=== PATIENT | female | born 1940 | race Caucasian/White ===

== ENCOUNTER → 2017-02-12 11:33 | Outpatient (CLI) | payer MEDICARE, OTHER ==
--- NOTE | 2017-02-19 08:17 | EC ---
PATIENT:YASMIN MONTAÑO DATE OF SERVICE: 02/12/17 SEX: F MEDICAL RECORD: [id number] DATE OF : 42 LOCATION:[facility] AGE OF PATIENT: 76 ADMISSION DATE: 02/12/17 REFERRING PHYSICIAN: INTERPRETING PHYSICIAN: JACKIE JIMENEZ M.D. ECHOCARDIOGRAM REPORT ECHO CHARGES 4 ECHO COMPLETE CLINICAL DIAGNOSIS: HYPERTENSION/CAROTID DISEASE ECHOCARDIOGRAPHIC MEASUREMENTS (adult normal given) AC root (d.<3.7cm) 2.8 LV Septum d (<1.2 cm> 1.3 Valve Excursion 1.8 LV Septum (systole) 1.5 Left Atria (s.<4.0cm> 3.9 LVPW d(<1.2cm) 1.1 RV (d.<2.3cm) 4.1 LVPW (sytole) 1.5 LV diastole(<5.6CM) 4.4 MV E-F(>70mm/sec) LV systole 3.6 LVOT Diameter 1.5 MV exc.(>10mm) 1.6 Est.ejection fraction (50-75%) Pericardial Effusion N DOPPLER: LVIT A 29.0 E 94.0 LA RVSP 44 LVOT 137 AOP1/2T Asc. Ao 170 RVOT 93 RA PA 123 AV Gradient Peak 11.53 AV Mean 5.8 AV Area 1.6 MV Gradient Peak 4.30 MV Mean 1.40 MV Area COMMENTS: Competitive Intelligence Manager: Shea COLEMAN Marketing Support Specialist:Shea Jimenez TAPE# PACS DATE OF SERVICE: 02/12/2017 REFERRING PHYSICIAN: Dr. Yung Cantrell. INDICATION: Hypertension, carotid artery disease. DESCRIPTION: Left ventricle demonstrates left ventricular hypertrophy. No wall motion abnormalities noted. Estimated ejection fraction is 55%. Mitral valve appears structurally normal. There is mild regurgitation seen. Left atrium is normal in size. The aortic valve is trileaflet. There is no stenosis or ECHOCARDIOGRAM REPORT [id number] YASMIN MONTAÑO regurgitation seen. Right ventricle is mildly dilated. Tricuspid valve is structurally normal. There is mild regurgitation noted. Right ventricular systolic pressure is elevated at 44 mmHg. There is no pericardial effusion noted. IMPRESSION: 1. Left ventricular hypertrophy with preserved ejection fraction of 55%. 2. Mild mitral regurgitation. 3. Mild tricuspid regurgitation. TRANSINT:[id number] Voice Confirmation ID: [id number] DOCUMENT ID: [id number] JACKIE JIMENEZ M.D. at 0817 CC: [id number] DICTATION DATE: 02/13/17 0804 TOOL REPAIRER BENCH: 02/14/17 0150 DEP CLI 02/12/17 [place] [id number] [place] [id number]
== END | disposition home or self-care (01) ==
LOC: D.ECHO 02-11 13:00 → D.US 02-11 14:00 → D.ECHO 11:33
DX: I65.23 Occlusion and stenosis of bilateral carotid arteries (principal); I10 Essential (primary) hypertension

== ENCOUNTER → 2018-04-02 12:52 | Outpatient (CLI) | payer MEDICARE, OTHER ==
--- NOTE | ~2018-04-02 | EC ---
PATIENT:YASMIN MONTAÑO DATE OF SERVICE: 04/02/18 SEX: F MEDICAL RECORD: [id number] DATE OF : 42 LOCATION:D[facility] AGE OF PATIENT: 77 ADMISSION DATE: 04/02/18 REFERRING PHYSICIAN: INTERPRETING PHYSICIAN: JESSE MCCLENDON MD ECHOCARDIOGRAM REPORT ECHO CHARGES 4 ECHO COMPLETE Date: 04/02 CLINICAL DIAGNOSIS: HTN ECHOCARDIOGRAPHIC MEASUREMENTS (adult normal given) AC root (d.<3.7cm) 2.9 cm LV Septum d (<1.2 cm> 1.4 cm Valve Excursion 1.9 cm LV Septum (systole) 1.9 cm Left Atria (s.<4.0cm> 3.9 cm LVPW d(<1.2cm) 1.2 cm RV (d.<2.3cm) 2.2 cm LVPW (sytole) 1.7 cm LV diastole(<5.6CM) 4.6 cm MV E-F(>70mm/sec) cm LV systole 2.6 cm LVOT Diameter 1.6 cm MV exc.(>10mm) cm Est.ejection fraction (50-75%) % DOPPLER: LVIT cm/sec A 60.0 cm/sec E 79.0 cm/sec LA cm/sec RVSP 67.1 mmHg LVOT 86.0 cm/sec AOP1/2T m/s Asc. Ao 166 cm/sec RVOT 78.0 cm/sec RA cm/sec PA 100 cm/sec AV Gradient Peak 11.0 mmHg AV Mean 5.7 mmHg AV Area 0.9 cm MV Gradient Peak 4.4 mmHg MV Mean 1.3 mmHg MV Area cm COMMENTS: Telegraph Inspector: 1 TORSTEN KOLBOE Winding Lathe Operator: 1 Dr. Mcclendon TAPE# PACS Pericardial Effusion N DATE OF SERVICE: 04/02/2018 Echocardiogram FINDINGS: 1. Left ventricular chamber size is within normal limits. Left ventricular systolic function is normal. Overall ejection fraction estimated at 55%. 2. Left atrium, right atrium, and right ventricular chamber sizes are within normal limits. 3. Valvular structures: Aortic valve demonstrates calcific aortic stenosis, ECHOCARDIOGRAM REPORT [id number] YASMIN MONTAÑO valve area calculates to 0.9 cm-squared. There is a gradient of 11 mm across the valve. The remaining valvular structures have normal structure and motion. 4. Doppler interrogation elsewise reveals moderate mitral regurgitation, moderate to severe tricuspid regurgitation, no other valvular insufficiency or stenosis. Pulmonary systolic pressure is estimated at 67 mmHg. 5. No evidence of pericardial effusion or left ventricular thrombus. TRANSINT:[id number] Voice Confirmation ID: [id number] DOCUMENT ID: [id number] JESSE MCCLENDON MD at 1006 CC: [id number] DICTATION DATE: 04/02/18 1603 LEAD APPLICATIONS DEVELOPER: 04/02/18 1621 DEP CLI 04/02/18 [place] [id number] [place] [address]
== END | disposition home or self-care (01) ==
LOC: D.ECHO 03-31 13:00
DX: I65.23 Occlusion and stenosis of bilateral carotid arteries (principal); I10 Essential (primary) hypertension

== ENCOUNTER 2018-06-24 11:06 | Day surgery (SDC) | payer MEDICARE, OTHER ==
[~2018-06-24] VITALS: Ht 162.6 cm; Wt 63.6 kg
--- NOTE | ~2018-06-24 | OP ---
PATIENT NAME: YASMIN MONTAÑO MEDICAL RECORD: [id number] :42 LOCATION:[facility] ADMISSION DATE: SURGEON: MITZI CANTRELL MD DATE OF OPERATION: 06/24/2018 SURGEON: Mitzi Cantrell MD ANESTHESIA: General. ANESTHESIOLOGIST: Gordo Ansari MD OPERATION PERFORMED: Insertion of dual-chamber pacing system. PREOPERATIVE DIAGNOSES: Sick sinus syndrome, bradycardia. POSTOPERATIVE DIAGNOSES: Sick sinus syndrome, bradycardia. INDICATION FOR OPERATION: Symptomatic bradycardia. FINDINGS OF THE OPERATION: The pacemaker Medtronic Advisa A2DR01, serial number [id number]. ATRIAL LEAD: Medtronic model number 4574-45, serial number [id number]. Ventricular lead Medtronic model number 4074-52, serial number [id number]. LEAD ANALYSIS: Atrial lead threshold 0.4 volts, current lead threshold 0.4 milliamps, resistance 545 ohms. P-wave 2.8. Ventricular lead threshold 0.3 volts, current lead threshold 0.4 milliamps, resistance 890 ohms, R-wave 18.5, slew rate 3.7. ESTIMATED BLOOD LOSS: Less than 5 cc. DESCRIPTION OF PROCEDURE: After informed consent, adequate preoperative medication evaluation, the patient was brought to the operating room, placed on the table in the supine position. After induction of general endotracheal anesthesia and application of appropriate monitoring devices, the left chest and neck prepped and draped in sterile field, utilizing Betadine scrub, alcohol, and Betadine solution. Betadine-impregnated drape was also used, 1% lidocaine was infiltrated in the left subclavicular space. Incision made. Dissection carried down the fascia. Hemostasis maintained with electrocautery. A pacemaker pocket was formed. Subclavian vein was cannulated with the introducers, leads placed in the heart. The above electrophysiologic study was done. The leads were felt to be in good position. The leads were then secured and connected to pulse generator. The pacemaker was placed in the pocket. Pacemaker fired, captured and sensed appropriately. Pocket was irrigated. Instrument count and sponge count were correct times 2. Pocket was closed in layers utilizing 3-0 Vicryl on deep subcutaneous tissue, 5-0 subcuticular Monocryl on the skin. Sterile dressings were applied. The patient tolerated procedure well and was transferred to postanesthesia recovery in satisfactory condition. TRANSINT:[id number] Voice Confirmation ID: [id number] DOCUMENT ID: [id number] OPERATIVE REPORT [id number] YASMIN MONTAÑO EDWARD MD at 1256 CC: [id number] DICTATION DATE: 06/24/18 1435 EDGER MACHINE OPERATOR: 06/24/18 1452 [facility] 06/25/18 [place] [id number] [place] [id number]
--- NOTE | ~2018-06-24 | HP ---
PATIENT: YASMIN MONTAÑO MEDICAL RECORD: [id number] ACCOUNT: [id number] LOCATION:D.OPS : 42 ADMISSION DATE: 06/24/18 HISTORY AND PHYSICAL EXAMINATION NameYASMIN MONTAÑO (77yo, F) ID# [id number]. Date/Time06/23/2018 10:02KHJNB56/23/1942Service Dept.[facility]PP_[facility] ClinicProviderMITZI BUNCH MDInsuranceMed Primary: [place] Insurance # : [id number] Referring Provider Name : RAFITA LEWIS Employer Name : RETIRED Med Secondary: [employer] [place] [facility] Insurance # : [id number] Policy/Group # : [id number] Referring Provider Name : RAFITA LEWIS Employer Name : RETIRED Prescription: [employer] - This member could not be found in the payer's files. Please verify coverage and all member demographic information. Chief Complaint Bradycardia, Sick sinus syndrome EVAL FOR PPM PLACEMENT Patient's Care Team Referring Provider (): RAFITA LEWIS: [facility], [address] [place] [phone], , Other: RAFITA LEWIS MD: [address] [place] [phone], , Patient's Pharmacies [place] [phone] ([facility]) : [address] [place] [phone], , Vitals BP:122/56 sitting R arm 06/23/2018 10:19 amBP Cuff Size:adult 06/23/2018 10:19 amHR:42,REG 06/23/2018 10:19 amHt:5 ft 3 in 06/23/2018 10:11 amWt:140 lbs 06/23/2018 10:19 amNotes:HEART RATE RUNNING 40'S, FEELING TIRED AND NO ENERGY 06/23/2018 10:20 amBMI:24.8 06/23/2018 10:19 amAllergies Reviewed Allergies IODINATED CONTRAST- ORAL AND IV DYEMedications Reviewed Medications aspirin 81 mg chewable tablet Chew 1 tablet(s) every day by oral route.10/02/11 enteredShea Yecitalopram 20 mg tablet Take 1 tablet(s) every day by oral route.10/02/11 enteredShea EphraimDeplin 15mg every other day02/04/14 enteredLuannwilber BrunoDiovan HCT 160 mg-25 mg tablet Take 1 tablet(s) every day by oral route.10/02/11 enteredShea WilsonEvista 60 mg tablet Take 1 tablet(s) every day by oral route.10/02/11 enteredAt[facility]anie Yemetoprolol tartrate 25 mg tablet Take 0.5 tablet(s) twice a day by oral route.05/22/18 Adalberto Bunch MDNorvasc 5mg daily10/05/11 enteredValentina BrownPriLOSEC 20 mg capsule,delayed release Take 1 capsule(s) every day by oral route.10/02/11 enteredShea EphraimVita-C 500mg daily10/02/11 enteredAt[facility]villejoanie YeProblems Reviewed Problems Bradycardia - Onset: 06/23/2018 Mitral valve disorder HISTORY AND PHYSICAL [id number] YASMIN MONTAÑO Carotid artery occlusion Hyperlipidemia Essential hypertension Aortic valve disorder Family History Reviewed Family History Father- Heart disease ( age: 38) - previously recorded as Heart ProblemMother- Problem ( age: 90) - CEA (previously recorded as Other)Social History Reviewed Social History Cardiology Family history of heart disease?: Y Smoking Status: Current every day smoker Smoker (1 PPD) (Notes: 45+ yrs) High blood pressure: Y Exercise level: Moderate Diet: Regular Surgical History Reviewed Surgical History Other - 1980 - gallbladder Other - 1970 - ovarian cyst removed PERSONAL INJURY LEGAL ASSISTANT History (not configured) Past Medical History Reviewed Past Medical History Carotid Stenosis: Y High Blood Pressure: Y Documents for Discussion N/A Screening None recorded. HPI Fatigue Reported by patient. Quality: continuous Severity: normal sleep patterns Duration: symptoms lasting over 2 weeks Timing: better Context: symptoms improve on weekends/vacation; no problems/stress at work or home Modifying Factors: no new stressors in life Associated Symptoms: no drug/alcohol withdrawal; no depression; no anxiety; no sleep disturbances; no snoring; p eriods of not breathing (apnea) have not been observed; no recent change in weight; HAS SOB AND FATIGUE WHICH IS MUCH WORSE IN THE AFTERNOONS. bbradycardia symptomatic ROS Patient reports exercise intolerance but reports no fever, no night sweats, no significant weight gain, and no significant weight loss. She reports shortness of breath when walking but reports no chest pain, no arm pain on exertion, no shortness of breath when lying down, no palpitations, and no known heart murmur. She reports no dry eyes , no irritation, and no vision change. She reports no difficulty hearing and no ear pain. She reports no frequent nosebleeds and no nose/sinus problems. She reports no sore throat, no bleeding gums, no snoring, no dry mouth, no HISTORY AND PHYSICAL [id number] GILBERTYASMIN mouth ulcers, no oral abnor m alities, and no teeth problems. She reports no cough, no wheezing, no shortness of breath, and no coughing up blood. She reports no abdominal pain, no vomiting, normal appetite, no diarrhea, not vomiting blood, no nausea, and no constipation. She reports n o incontinence, no difficulty urinating, no hematuria, and no increased frequency. She reports no muscle aches, no muscle weakness, no arthralgias/joint pain, no back pain, and no swelling in the extremities. She reports no abnormal mole, no jaundice, and no rashes. She reports no loss of consciousness, no weakness, no numbness, no seizures, no dizziness, and no headaches. She reports no depression, no sleep disturbances, feeling safe in relationship, and no alcohol abuse. She reports no fatigue. She repor ts no swollen glands and no bruising. She reports no runny nose, no sinus pressure, no itching, no hives, and no frequent sneezing. ROS as noted in the HPI Physical Exam Patient is a 77-year-old female. Constitutional: General Appearance well nourished and developed and healthy-appearing. Level of Distress NAD. Ambulation ambulating normally. Ears, Nose, Throat: Ears grossly normal hearing. Nose no external nose lesion. Lips, Teeth, and Gums no mouth or lip ulcers. Orop harynx: moist mucous membranes. Cardiovascular: Apical Impulse not displaced or no thrill; bradycardia. Heart Auscultation normal s1 and s2, no rubs or gallops, and RRR and murmur (TR MR AORTIC FLOW M). Arterial Pulses no abdominal aorta bruits, femoral b ruits, or popliteal bruits and 2+ bilateral, carotid 2+ bilateral, femoral 2+ bilateral, popliteal 2+ bilateral, and dorsalis pedis 2+ bilateral. Edema no edema or varicosities. Lungs: Repiratory Effort no dyspnea. Percussion no hyperresonance or dullness or flatness. Auscultation no wheezing, rhonchi, or rales / crackles and breathing sounds normal, good air movement, and CTA except as noted. Abdomen: Bowl Sounds normal. Inspection and Palpation no tenderness, guarding, vanna s, or rebound tenderness and soft and non-distended. Liver non-tender and no hepatomegaly. Spleen non-tender and no splenomegaly. Hernia none palpable. Musculoskeletal System: Gait And Stance normal gait and stance. Digits and Nails normal nails and no cyanosis. Neurologic: Cranial Nerves grossly intact. Reflexes DTRs 2+ bilaterally throughout. Sensation grossly intact. Lymph Nodes: Lymph Nodes no cervical LAD, supraclavicular LAD, axillary LAD, or inguinal LAD. Eyes: Lids and Conjunctivae no discharge or pallor and non-injected. Pupils PERRLA. Cornea grossly intact. EOM EOMI. Lens clear. Sclera non-icteric. Neck: Neck no masses or enlarged lymph nodes and supple, trachea midline, and carotid bruits (BILAT). Thyroid no enlargement or nodules and non-tender. Skin: Inspection and Palpation no rash, lesions, ulcers, jaundice, or abnormal nevi. Assessment / Plan sick sinus syndrome with symptomatic bradycardia HISTORY AND PHYSICAL [id number] YASMIN MONTAÑO 1. Bradycardia R00.1: Bradycardia, unspecified BRADYCARDIA: CARE INSTRUCTIONS 2. Aortic valve disorder I35.9: Nonrheumatic aortic valve disorder, unspecified HEART VALVE DISEASE: CARE INSTRUCTIONS Discussion Notes symptomatic sick sinus syndrome and bradycardia. I have discussed her disease process with her in detail as well as the alternative methods of treatment we discussed permanent pacemaker including the expected benefits and risks which include bleeding, pneumothorax, infection, stroke, and the imponderables.she understands all the above and wishes to proceed with surge ry as planned MITZI BUNCH MD at 1256 CC: [id number] DICTATION DATE: 06/23/18 1000 HOSIERY LOOPER: DM 06/23/18 1547 DEP SDC 06/25/18 [facility] [address] [place] [address]
[2018-06-24 11:39] LABS: HEMATOCRIT 39.3 % (36.0-48.0); HEMOGLOBIN 13.1 g/dL (12-16); MCH 29.8 pg (26.0-34.0); MCHC 33.3 g/dL (31.0-37.0); MCV 89.5 fL (80.0-100.0); RBC 4.39 10x6/uL (4.00-5.40); RDW 13.7 % (11.5-14.5); WBC 10.9 10x3/uL (4.8-10.8)
[2018-06-24 12:02] LABS: CALC OSMOLALITY 285 mosm/kg (275-300); CALCIUM 8.5 mg/dL (8.5-10.1); CARBON DIOXIDE 28.2 mmol/L (21.0-32.0); CHLORIDE - SERUM 106 mmol/L (98-107); CREATININE - SERUM 0.7 mg/dL (0.6-1.3); GLUCOSE 95 mg/dL (74-106); POTASSIUM - SERUM 3.8 mmol/L (3.5-5.1); SODIUM 143 mmol/L (136-145); UREA NITROGEN 15 mg/dL (7-18); eGFR NON AFRICAN AMERICAN 86 mL/min (90-120)
[2018-06-24 12:08] LABS: APTT 25.9 SECONDS (22.8-39.4); INR 1.15 (0.85-1.17); PROTIME 14.1 SECONDS (11.6-15.0)
[2018-06-24] MEDS ORDERED: CELEXA40 MG PO (12:13)
[2018-06-24] MEDS ORDERED: OXYBUTYNIN CHLOR5 MG PO (12:14)
[2018-06-24] MEDS ORDERED: EVISTA60 MG PO (12:14)
[2018-06-24] MEDS ORDERED: DIOVAN HCT 160/1 TA1 PO (12:15)
[2018-06-24] MEDS ORDERED: MOBIC7.5 MG PO (12:15)
[2018-06-24] MEDS ORDERED: NORVASC10 MG PO (12:15)
[2018-06-24] MEDS ORDERED: LATUDA40 MG PO (12:16)
[2018-06-24] MEDS ORDERED: METOPROLOL TART25 MG PO (12:17)
[2018-06-24] MEDS ORDERED: VITAMIN D31000 UNIT PO (12:18)
[2018-06-24] MEDS ORDERED: ASCORBIC ACID500 MG PO (12:18)
[2018-06-24] MEDS ORDERED: BAYER CHEWABLE81 MG PO (12:19)
[2018-06-24] MEDS ORDERED: PRILOSEC2.5 MG PO (12:19)
[2018-06-24 12:35] VITALS: BP 185/21; BMI 24.0
[2018-06-24 15:15] VITALS: BP 172/48
[2018-06-24 16:00] VITALS: BP 172/60
[2018-06-24 18:09] VITALS: BP 172/49; Ht 162.6 cm; Wt 63.6 kg
[2018-06-24 20:10] VITALS: BP 172/46
[2018-06-25 01:10] VITALS: BP 108/48
[2018-06-25 05:20] VITALS: BP 165/48
[2018-06-25 08:15] VITALS: BP 167/43
== END 2018-06-25 12:31 | disposition home or self-care (01) ==
LOC: D.OPS 11:06 → D.M2 15:58 → D.OPS 06-25 12:31
PROVIDERS: Internal Medicine Cardiovascular Disease
DX: I49.5 Sick sinus syndrome (principal); I35.9 Nonrheumatic aortic valve disorder, unspecified; E78.5 Hyperlipidemia, unspecified; I10 Essential (primary) hypertension; I65.29 Occlusion and stenosis of unspecified carotid artery; F17.210 Nicotine dependence, cigarettes, uncomplicated; Z01.812 Encounter for preprocedural laboratory examination

== ENCOUNTER → 2019-04-06 07:27 | Outpatient (CLI) | payer MEDICARE, OTHER ==
[2018-06-24 18:09] VITALS: BMI 24.0
[~2019-04-06 07:27] MED LIST: ASCORBIC ACID500 MG PO; BAYER CHEWABLE81 MG PO; CELEXA40 MG PO; DIOVAN HCT 160/1 TA1 PO; EVISTA60 MG PO; LATUDA40 MG PO; METOPROLOL TART25 MG PO; MOBIC7.5 MG PO; NORVASC10 MG PO; OXYBUTYNIN CHLOR5 MG PO; PRILOSEC2.5 MG PO; VITAMIN D31000 UNIT PO
== END | disposition home or self-care (01) ==
LOC: D.US 07:27
PROVIDERS: ATTEND Internal Medicine Cardiovascular Disease
DX: I65.23 Occlusion and stenosis of bilateral carotid arteries (principal)

== ENCOUNTER → 2019-07-07 11:35 | Outpatient (CLI) | payer MEDICARE, OTHER ==
[2018-06-24 18:09] VITALS: BMI 24.0
== END | disposition home or self-care (01) ==
LOC: D.HCCARDIO 11:30
PROVIDERS: ATTEND Internal Medicine Cardiovascular Disease
DX: I35.0 Nonrheumatic aortic (valve) stenosis (principal)

== ENCOUNTER → 2019-07-22 10:06 | Outpatient (CLI) | payer MEDICARE, OTHER ==
[2018-06-24 18:09] VITALS: BMI 24.0
== END | disposition home or self-care (01) ==
LOC: D.HCCARDIO 10:06
PROVIDERS: ATTEND Internal Medicine Cardiovascular Disease
DX: I20.9 Angina pectoris, unspecified (principal)

== ENCOUNTER 2019-08-20 05:35 | Day surgery (SDC) | payer MEDICARE, OTHER ==
[2019-08-19 10:12] LABS: HEMATOCRIT 42.1 % (36.0-48.0); HEMOGLOBIN 14.3 g/dL (12-16); LYMPHOCYTES 22.4 % (15-50); MCH 30.9 pg (26.0-34.0); MCV 90.9 fL (80.0-100.0); MEAN PLATELET VOLUME 9.4 fL (7.4-10.4); NEUTROPHILS 68.7 % (40-80); PLATELET COUNT 194 10x3/uL (130-400); RBC 4.63 10x6/uL (4.00-5.40); RDW 13.3 % (11.5-14.5); WBC 11.3 10x3/uL (4.8-10.8)
[2019-08-19 10:16] LABS: APTT 28.6 SECONDS (22.8-39.4); INR 1.02 (0.85-1.17); PROTIME 12.9 SECONDS (11.6-15.0)
[~2019-08-20] VITALS: Ht 160 cm; Wt 63.0 kg
[2019-08-20 06:19] VITALS: BP 148/49; Ht 160 cm; Wt 63.0 kg
--- NOTE | 2019-08-20 10:20 | NUR ---
0840-REC'D FROM RR. AWAKE AND ALERT WITHOUT COMPLAINTS. VSS. AT BEDSIDE, CL IN EASY REACH
--- NOTE | 2019-08-20 10:21 | NUR ---
0900-FULL LIQUID TRAY TO ROOM.DENIES COMPLAINTS
--- NOTE | 2019-08-20 10:21 | NUR ---
0930-DISCHARGE CRITERIA MET.REVIEWED POST OPERATIVE DISCHARGE INSTRUCTIONS WITH PT AND SPOUSE. VERBALIZED UNDERSTANDING. ESCORTED OUT VIA W/C WITH SPOUSE DRIVING HOME
--- NOTE | 2019-08-20 11:38 | OP ---
PATIENT NAME: YASMIN MONTAÑO MEDICAL RECORD: [id number] :42 LOCATION:D.OPS ADMISSION DATE: SURGEON: GORDO CORRALES MD DATE OF OPERATION: 08/20/2019 SURGEON: Gordo Corrales MD ANESTHESIA: TIVA by Sheng Martin CRNA. DIAGNOSIS: Urge urinary incontinence. PROCEDURES: Cystoscopy and intravesical Botox injection 100 units. FINDINGS: Single ureteral orifices bilaterally, no bladder tumors. BLOOD LOSS: None. CLINICAL HISTORY: This is a 78-year-old female, who has significant urge urinary incontinence. She has tried oxybutynin and Myrbetriq. Myrbetriq did work, but she finds the medication to be unaffordable. Therefore, we are going to go with intravesical Botox. SHE IS ALLERGIC TO IVP DYE. She was given Ancef pipe connector to the OR. DESCRIPTION OF PROCEDURE: The patient was given IV sedation. She was placed into lithotomy position and prepped and draped. A 21-Syriac cystoscope with 30-degree lens was used for visualization. There were no bladder tumors seen. At 10 different locations, we injected 1 mL of Botox solution. Each milliliter of Botox solution had 10 units of Botox in it. We spared the ureteral orifices and the trigone. This gave a total of 100 units given into the bladder muscle. The bladder was then emptied through the cystoscope sheath and the scope was removed. I will see the patient in followup in 2-3 weeks' time. TRANSINT:[id number] Voice Confirmation ID: [id number] DOCUMENT ID: [id number] GORDO CORRALES MD at 1138 CC: [id number] DICTATION DATE: 08/20/19818 FUEL CELL BATTERY TECHNICIAN: 08/20/19 1026 [facility] 08/20/19 [place] [id number]
== END 2019-08-20 09:30 | disposition home or self-care (01) ==
LOC: D.OPS 05:35 → D.PAN 07:30 → D.OPS 09:30
PROVIDERS: Anesthesiology; ATTEND Urology
DX: N39.41 Urge incontinence (principal)

== ENCOUNTER → 2019-10-19 17:54 | Outpatient (CLI) | payer MEDICARE, OTHER ==
[2019-08-20 06:19] VITALS: BMI 24.6
== END | disposition home or self-care (01) ==
LOC: D.LABREF 17:54
PROVIDERS: ATTEND Urology
DX: R82.90 Unspecified abnormal findings in urine (principal)

== ENCOUNTER 2019-12-03 06:30 | Day surgery (SDC) | payer MEDICARE, BC ==
[~2019-12-03] VITALS: Ht 160 cm; Wt 63.5 kg
[2019-12-03 07:27] LABS: HEMATOCRIT 40.2 % (36.0-48.0); HEMOGLOBIN 13.3 g/dL (12-16); MCH 30.4 pg (26.0-34.0); MCHC 33.1 g/dL (31.0-37.0); MCV 91.8 fL (80.0-100.0); MEAN PLATELET VOLUME 9.6 fL (7.4-10.4); RBC 4.38 10x6/uL (4.00-5.40); RDW 13.5 % (11.5-14.5); WBC 11.7 10x3/uL (4.8-10.8)
[2019-12-03 07:39] LABS: APTT 28.1 SECONDS (22.8-39.4); INR 1.06 (0.85-1.17); PROTIME 13.3 SECONDS (11.6-15.0)
[2019-12-03 07:50] VITALS: BP 158/65; Ht 160 cm; Wt 63.5 kg
--- NOTE | 2019-12-03 12:40 | NUR ---
1029-REC'D FROM RR.AWAKE AND ALERT WITHOUT COMPLAINTS.VSS. REVIEWED DISCHARGE CRITERIA. CL IN EASY REACH. SPOUSE AT BEDSIDE.
--- NOTE | 2019-12-03 12:42 | NUR ---
1109-TOLERATED TRAY. REMOVED IV FROM LEFT WRIST WITH CATH INTACT,DISPOSED INTO SHARPS,COVERED SITE WITH GUAZE,SECURED WITH MEDIPORE TAPE. REVIEWED POST OPERATIVE INSTRUCTIONS AND FOLLOW UP WITH PT.VERBALIZED UNDERSTANDING.
--- NOTE | 2019-12-03 12:42 | NUR ---
1045-FULL LIQUID TRAY TO ROOM. DENIES COMPLAINTS. VERY PLEASANT LADY
--- NOTE | 2019-12-03 12:44 | NUR ---
1113-ESCORTED OUT VIA W/C WITH SPOUSE AWAITING TO DRIVE HOME
--- NOTE | 2019-12-03 12:59 | OP ---
PATIENT NAME: YASMIN MONTAÑO MEDICAL RECORD: [id number] :42 LOCATION:D.OPS ADMISSION DATE: SURGEON: GORDO CORRALES MD DATE OF OPERATION: 12/03/2019 SURGEON: Gordo Corrales MD ANESTHESIA: TIVA by Roxanne Easley CRNA. DIAGNOSIS: Urge urinary incontinence. PROCEDURES: Cystoscopy and intravesical Botox injection 100 units. FINDINGS: Trabeculated bladder with single ureteral orifices, with no bladder tumors. BLOOD LOSS: None. CLINICAL HISTORY: This is a 78-year-old female who has urge urinary incontinence. She has tried oxybutynin and Myrbetriq. The Myrbetriq did work, but she could not afford it. She then had intravesical Botox injection of 100 units on 08/20/2019. This worked fine, but now it has worn off. She comes to have another Botox injection. SHE IS ALLERGIC TO IODINE CONTRAST. She was given Ancef friction saw operator to the OR. DESCRIPTION OF PROCEDURE: The patient was given IV sedation. She was placed into dorsal lithotomy position and prepped and draped. A 20-Czech cystoscope with 30-degree lens was used for visualization. Findings are as outlined above. At 10 different locations 1 mL of Botox solution was injected. We did not inject the region of the trigone or the ureteral orifices. Each mL of Botox solution had 10 units of Botox suspended within it. Once all the injections were done, the procedure was terminated and the patient's bladder was emptied through the cystoscope sheath. I will see her in followup in 2 weeks' time and see how she is doing. TRANSINT:[id number] Voice Confirmation ID: [id number] DOCUMENT ID: [id number] GORDO CORRALES MD at 1259 CC: [id number] DICTATION DATE: 12/03/19 1005 SUPERVISOR DRYING AND SOFTENING: 12/03/19 1253 [facility] 12/03/[address] [address]
== END 2019-12-03 11:18 | disposition home or self-care (01) ==
LOC: D.OPS 06:30 → D.PAN 07:30 → D.OPS 07:30 → D.PAN 09:00 → D.OPS 11:18
PROVIDERS: Anesthesiology; ATTEND Urology
DX: N39.41 Urge incontinence (principal); N30.00 Acute cystitis without hematuria; I05.9 Rheumatic mitral valve disease, unspecified; I65.29 Occlusion and stenosis of unspecified carotid artery; E78.5 Hyperlipidemia, unspecified; E55.9 Vitamin D deficiency, unspecified; I10 Essential (primary) hypertension; I35.8 Other nonrheumatic aortic valve disorders

== ENCOUNTER → 2020-03-21 13:05 | Outpatient (CLI) | payer MEDICARE, BC ==
[2019-12-03 07:50] VITALS: BMI 24.8
== END | disposition home or self-care (01) ==
LOC: D.US 13:05
PROVIDERS: ATTEND Internal Medicine Cardiovascular Disease
DX: I65.23 Occlusion and stenosis of bilateral carotid arteries (principal)

== ENCOUNTER → 2020-04-05 12:04 | Outpatient (CLI) | payer MEDICARE, BC ==
[~2020-04-05] VITALS: Ht 160 cm; Wt 63.6 kg
--- NOTE | 2020-04-05 12:55 | NUR ---
PATIENT STATES THAT SHE WILL NOT BE DRIVING HOME, HER IS DRIVING HOME, PATIENT IS AWARE THAT DRIVING HOME IS PROHIBITIED DUE TO IV INJECTION OF BENADRYL
[2020-04-05 14:05] VITALS: BP 171/56; Ht 160 cm; Wt 63.6 kg
== END | disposition home or self-care (01) ==
LOC: D.OPS 04-04 12:00
PROVIDERS: ATTEND Internal Medicine Cardiovascular Disease
DX: I65.23 Occlusion and stenosis of bilateral carotid arteries (principal)

== ENCOUNTER 2020-06-21 11:48 | Inpatient (IN) | payer MEDICARE, BC ==
[~2020-06-21] VITALS: Ht 160 cm; Wt 65.6 kg
--- NOTE | ~2020-06-21 | HEMODYNAMI ---
PATIENT:YASMIN MONTAÑO MEDICAL RECORD: [id number] : 42 [facility] CL[facility] [id number] ADMISSION DATE: 06/21/20 Generatedon:06/22/202012:10 Patient name: YASMIN MONTAÑO Patient #: [id number] : 1940 Date of study: 06/22/2020 Page: Of Hemodynamic Procedure Report Patient Data Patient Demographics Procedure consent was obtained First Name: YASMIN Gender: Female Last Name: DANYEL : 1940 Middle Initial: NORMA Age: 79 year(s) Patient #: [id number] Race: Unknown SSN: [id number] Additional ID: [id number] Contact details Address: [address] [place] [address] [place] State: [place] City: [place] Zip code: [address] Past Medical History Allergies Allergen Reaction Date Comments Reported Iodine 06/22/2020 Admission Admission Data Admission Date: 06/21/2020 Admission Time: 14:32 Arrival Date: 06/22/2020 Arrival Time: 0:00 Admit Source: Other Insurance Payor: Medicare Room #: D.2116 [facility] #: [id number] Height (in.): 62.99 BSA: 1.68 (m2) Height (cm.): 160 BMI: 25.39 (kg/m2) Weight (lbs.): 143.3 Weight (kg.): 65 Lab Results Lab Result Date: 06/22/2020 Lab Result Time: 0:00 Biochemistry Name Units Result Min Max BUN mg/dl 11 --(-*--)-- 7 18 Creatinine mg/dl 0.8 --(-*--)-- 0.6 1.3 eGFR ml/min 73.45361 *-(----)-- 90 120 NONAFRICAN CBC Name Units Result Min Max Hemoglobin g/dl 14.9 --(-*--)-- 13.5 17.5 Procedure Procedure Types Cath Procedure Diagnostic Procedure [facility] w/Coronaries Sedation Charges Moderate Sedation up to 30 minutes PCI Procedure Coronary Stent Coronary Stent Initial Hemochron ACT Test Procedure Description Procedure Date Procedure Date: 06/22/2020 Procedure Start Time: 11:42 Procedure End Time: 12:04 Procedure Staff Name Function Odell Gregorio MD Performing Physician Mesha Payne RT Monitor Pamela Dickinson RN Nurse Shea Samuels RT Scrub Procedure Data Cath Procedure Fluoroscopy Diagnostic fluoroscopy Total fluoroscopy Time: 2.7 time: 2.7 min min Diagnostic fluoroscopy Total fluoroscopy dose: 444 dose: 444 mGy mGy Contrast Material Contrast Material Type Amount (ml) Isovue 300 86 Entry Location Entry Primary Successful Side Size Upsize Upsize Entry Closure Gonzalez ccessful Closure Location (Fr) 1 (Fr) 2 (Fr) Remarks Device Remarks Radial Right 6 Fr Mechanical artery Short Compression Femoral Right 5 Fr 6 Fr Exoseal artery Short Estimated blood loss: 10 ml Diagnostic catheters Device Type Used For End Catheter Placement DIAGNOSTIC JL 4.0 5Fr Procedure catheter ([id number]) DIAGNOSTIC 3DRC 5Fr Procedure catheter ([id number]) DIAGNOSTIC Pigtail 5Fr catheter ([id number]) Procedure Complications No complications Procedure Medications Medication Administration Route Dosage 0.9% NaCl I.V. 100 ml/hr Oxygen etCO2 Nasal cannula 2 l/min Lidocaine 2% added to field 20 Heparin Flush Bag added to field 2 bags (1000units/500ml NS) Radial Cocktail added to field 1 syringe (Verapamil 2mg/Nitro 400mcg/Heparin 1500units) Versed I.V. 2 mg Fentanyl I.V. 50 mcg Fentanyl I.V. 50 mcg Heparin Bolus I.V. 5000 units Integrilin (Bolus I.V. 5.6 ml 2mg/ml) Integrilin (Bolus I.V. 4.4 ml 2mg/ml) Plavix P.O. 600 mg Hemodynamics Rest BSA: 1.68 (m2) HGB: 14.9 (g/dl) O2 Consumption: Estimated: 150.39 (ml/min) O2 Co nsumption indexed: Estimated:89.52 (ml/min/m) Heart Rate: 68 (bpm) Pressure Samples Time Site Value (mmHg) Purpose Heart Use Rate(bpm) 11:50 LV 140/-2,9 Snapshot 67 Gradients Valve Time Site Site Mean SEP/DFP Peak To Heart Use 1 2 (mmHg) (sec/min) Peak Rate (mmHg) (bpm) Aortic 11:51 LV AO 69 Snapshots Pre Cath Intra NCS Post Cath Vital Signs Time Heart Resp SPO2 etCO2 NIBP (mmHg) Rhythm Pain Sedation Rate (ipm) (%) (mmHg) Status Level (bpm) 11:28:26 69 19 95 26.3 188/88(152) NSR 0 (11) 10(A) , No pain 11:32:50 66 14 95 24 175/75(148) NSR 0 (11) 10(A) , No pain 11:37:50 62 12 96 30.8 Measuring NSR 0 (11) 10(A) , No pain 11:38:26 63 12 95 26.3 171/74(147) NSR 0 (11) 10(A) , No pain 11:43:25 63 22 96 24 Measuring NSR 0 (11) 10(A) , No pain 11:43:56 67 19 97 28.5 173/79(141) NSR 0 (11) 10(A) , No pain 11:48:25 59 17 97 24.8 173/63(130) SB 0 (11) 10(A) , No pain 11:52:53 70 27 97 23.3 170/71(128) NSR 0 (11) 10(A) , No pain 11:57:17 70 15 97 24.8 175/72(118) NSR 0 (11) 10(A) , No pain 12:02:16 70 9 92 26.3 Measuring NSR 0 (11) 10(A) , No pain 12:02:47 69 8 93 18 195/87(152) NSR 0 (11) 10(A) , No pain Medications Time Medication Route Dose Verified Delivered Reason Not es Effectiveness by by 11:22:10 0.9% NaCl I.V. 100 Odell Santiago used for ml/hr JgHugo Dickinson procedure MD THOMPSON 11:22:17 Oxygen etCO2 2 l/min Odell Santiago used for Nasal [facility] procedure cannula MD THOMPSON 11:22:21 Lidocaine 2% added 20ml Odell Bain for local to vial [facility] anesthetic field MD FUENTES 11:22:26 Heparin Flush added 2 bags Odell Bain used for Bag to [facility] procedure (1000units/500ml field MD FUENTES NS) 11:22:31 Radial Cocktail added 1 Odell Bain used for (Verapamil to syringe Jg Jg procedure 2mg/Nitro field MD FUENTES 400mcg/Heparin 1500units) 11:34:42 Versed I.V. 2 mg Odell Pamela for sedation St Hugo Dickinson MD RN 11:34:51 Fentanyl I.V. 50 mcg Odell Pamela for sedation St Hugo Dickinson MD, RN 11:40:11 Fentanyl I.V. 50 mcg Odell Pamela for sedation St Hugo Dickinson MD, RN 11:50:33 Heparin Bolus I.V. 5000 Odell Pamela for mayelin ified units [facility] anticoagulation with Dr. MD THOMPSON [place] 11:50:48 Integrilin I.V. 5.6 ml Odell Pamela for (Bolus 2mg/ml) St Hugo Dickinson antiplatelet RN therapy 11:57:58 Integrilin I.V. 4.4 ml Odell Pamela for (Bolus 2mg/ml) St Hugo Dickinson antiplatelet RN therapy 11:58:04 Plavix P.O. 600 mg Odell Pamela for St Hugo Dickinson antiplatelet RN therapy Procedure Log Time Note 10:54:14 Arrival Date: 06/22/2020 12:00:00 AM 10:54:36 Admit Source: Other 10:54:45 Insurance Payor : Medicare 10:54:57 Patient Height : 62.99 inches 10:55:01 Patient Weight : 143.3 lbs 10:55:36 Lab Result : Hemoglobin 14.9 g/dl 10:55:36 Lab Result : eGFR NONAFRICAN 73.15985 ml/min 10:55:36 Lab Result : BUN 11 mg/dl 10:55:36 Lab Result : Creatinine 0.8 mg/dl 10:55:50 Diagnostic Cath Status : Urgent 10:56:53 Procedure Status Urgent Heart Cath (IP). 10:56:57 Shea PANIAGUA(R) (CV) sent for patient. Start room use. 10:57:04 Time tracking: Regular hours (M-F 7:00 - 5:00) 10:57:08 Plan of Care:Hemodynamics will remain stable., Cardiac rhythm will remain stable., Comfort level will be maintained., Respiratory function will remain adequate., Patient/ family verbilizes understanding of procedure., Procedure tolerated without complication., Recovers from procedure without complications.. 10:57:27 H&P Date Dictated: 06/21/2020 Within 30 days and on chart., H&P Addendum completed by physician on day of procedure. (MUST COMPLETE FOR ALL OUTPATIENTS). 11:06:05 ACC Patient presents with Non-STEMI CCS Anginal Class 3--Marked limitation of physical activity, angina occurs with ordinary activity.. 11:06:56 Full Disclosure recording started 11:07:03 Pre-procedure instructions explained to patient. 11:07:03 Pre-op teaching completed and patient verbalized understanding. 11:07:06 Patient NPO since Midnight. 11:07:21 Patient allergic to Iodine 11:07:34 Is the patient allergic to Iodine/contrast media? Yes. 11:07:40 Was the patient premedicated? Yes 11:07:43 Is patient on blood thinner?No 11:08:36 Patient diabetic? No. 11:08:43 Patient not . Patient is over age 55. 11:08:52 Stress Test: no; N/A ? 11:08:55 Lab results completed and on chart. 11:11:37 Risk of Mortality: 1.2 11:11:39 Risk of blood transfusion: 1.5 11:11:42 Risk of ALANNA: 1.4 11:11:50 Patient received from Med II to CCL 1 Alert and oriented. Tansferred to table in Supine position. 11:11:56 Signed procedure consent form obtained from patient. 11:11:57 Warm blankets applied, and toney hugger turned on for patient comfort. 11:11:58 Correct patient and procedure confirmed by team. 11:12:14 Family unavailable. 11:12:40 ACC The patient was administered the following blood thiners within the last 24 hours: None 11::58 Vital chart was started 11:22:10 0.9% NaCl 100 ml/hr I.V. was administered by Pamela Dickinson RN; used for procedure; Verbal order read back and verified. 11:22:17 Oxygen 2 l/min etCO2 Nasal cannula was administered by Pamela Dickinson RN; used for procedure; Verbal order read back and verified. 11:22:21 Lidocaine 2% 20ml vial added to field was administered by Odell Gregorio MD; for local anesthetic; Verbal order read back and verified. 11:22:26 Heparin Flush Bag (1000units/500ml NS) 2 bags added to field was administered by Odell Gregorio MD; used for procedure; Verbal order read back and verified. 11:22:31 Radial Cocktail (Verapamil 2mg/Nitro 400mcg/Heparin 1500units) 1 syringe added to field was administered by Odell Gregorio MD; used for procedure; Verbal order read back and verified. 11:24:12 Baseline sample Acquired. 11:24:16 Rhythm: sinus rhythm 11:24:32 Previous problem with sedation/anesthesia? No ? 11:24:33 Snore? Yes 11:24:35 Sleep apnea? No 11:24:36 Deviated septum? No 11:24:36 Opens mouth fully? Yes 11:24:37 Sticks out tongue? Yes 11:24:39 Airway obstruction? No ? 11:24:41 Dentures? No ? 11:24:45 Modified Ramy's test Ulnar < 7 seconds 11:24:48 Pre procedure: right dorsailis pedis pulse 1+ Palpable, but thready & weak; easily obliterated 11:24:57 IV patent on arrival in left antecubital with 0.9% NaCl at [facility]. 11:25:11 Right Radial & Right Groin area was prepped with chlora-prep and draped in sterile fashion 11:26:24 Alarms reviewed by R. N. 11:26:24 Sharps counted by scrub and verified by R.N. 11:32:18 --------ALL STOP TIME OUT------ 11:32:18 Final Timeout: patient, procedure, and site verified with staff and physician. All members of the team are in agreement. 11:32:20 Right Radial & Right Groin site verified by team. 11:32:23 Fire Safety Assessment: A--An alcohol-based skin anteseptic being used preoperatively., C--Open oxygen or nitrous oxide is being used., D--An ESU, laser, or fiber-optic light is being used. 11:32:43 Physical assessment completed. ASA score P 2 - A patient with mild systemic disease as per Odell Gregorio MD. 11:32:47 2) 60-89 Mildly reduced kidney function, and other findings (as for stage 1) point to kidney disease. 11:32:50 Maximum allowable contrast dose (3.7 X eGFR X 0.75)203 ml. 11:32:54 Sedation plan: IV Moderate Sedation Medication:Versed, Fentanyl 11:33:03 Table malfunction, not moving up, down, or side to side. Restarting Nevarez system. 11:34:42 Versed 2 mg I.V. was administered by Pamela Dickinson RN; for sedation; Verbal order read back and verified. 11:34:51 Fentanyl 50 mcg I.V. was administered by Pamela Dickinson RN; for sedation; Verbal order read back and verified. 11:40:11 Fentanyl 50 mcg I.V. was administered by Pamela Dickinson RN; for sedation; Verbal order read back and verified. 11:42:07 Zero performed for pressure channel P1 11:42:44 Use device set Radial Dx or PCI 11:42:46 Procedure started. 11:42:57 Local anesthetic to right radial artery with Lidocaine 2% by Odell Gregorio MD.INITIAL ACCESS ONLY 11:42:59 ACIST Syringe (62107) opened to sterile field. 11:42:59 Medline Cath Pack ([id number]) opened to sterile field. 11:43:00 Bag Decanter (2002) opened to sterile field. 11:43:00 ACIST Hand Control (99559) opened to sterile field. 11:43:01 ACIST Manifold (54386) opened to sterile field. 11:43:01 Tegaderm 4 x 4 (1626W) opened to sterile field. 11:43:02 MBrace Wrist Support ([id number]) opened to sterile field. 11:43:09 EMERALD Guide Wire (426-244) opened to sterile field. 11:43:11 SHEATH 6FR RAIN (7823282) opened to sterile field. 11:44:07 A 6 Fr Short sheath was inserted into the Right Radial artery 11:45:15 RADIAL LOOP 11:45:27 SHEATH 5FR [place] (OME838) opened to sterile field. 11:45:44 DIAGNOSTIC Multipack 5Fr catheter set ([id number]) opened to sterile field. 11:46:58 Local anesthetic to right femoral artery with Lidocaine 2% by Odell Gregorio MD.ADDITIONAL ACCESS 11:47:06 A 5 Fr sheath was inserted into the Right Femoral artery 11:47:19 A DIAGNOSTIC JL 4.0 5Fr catheter ([id number]) was advanced over the wire and used for Procedure. 11:49:06 LCA angiography performed. 11:49:10 Catheter removed. 11:49:16 A DIAGNOSTIC 3DRC 5Fr catheter ([id number]) was advanced over the wire and used for Procedure. 11:49:24 RCA angiography performed. 11:49:43 Catheter removed. 11:50:33 Heparin Bolus 5000 units I.V. was administered by Pamela Dickinson RN; for anticoagulation; verified with Dr. Alexander Verbal order read back and verified. 11:50:48 Integrilin (Bolus 2mg/ml) 5.6 ml I.V. was administered by Pamela Dickinson RN; for antiplatelet therapy; Verbal order read back and verified. 11:50:56 A DIAGNOSTIC Pigtail 5Fr catheter (104652M) was advanced over the wire and used for . 11:51:08 EF : 55 % 11:51:16 Sheath upsized to a 6 Fr Short. 11:51:39 GUIDE 6FR AR 1.0 catheter ([id number]) opened to sterile field. 11:51:40 INFLATOR Merit BasixCompak (SC1655) opened to sterile field. 11:51:42 SHEATH 6FR [place] (LRN068) opened to sterile field. 11:52:27 Proceeding to intervention. 11:52:44 6 Fr AR1 guide catheter was inserted over the wire 11:52:50 WHISPER wire advanced. 11:53:21 WHISPER 300cm guide wire ([id number]) opened to sterile field. 11:57:14 Place stent Inflation Number: 1 A MIRIAN RX 3.0 x 15 stent ([id number]) was prepped and advanced across the Mid RCA 80. The stent was deployed at 12 SETPHANE for 0:30 (min:sec) 0. 11:57:49 ZEPHYR REGULAR TR BAND (439691) opened to sterile field. 11:57:58 Integrilin (Bolus 2mg/ml) 4.4 ml I.V. was administered by Pamela Dickinson RN; for antiplatelet therapy; Verbal order read back and verified. 11:58:04 Plavix 600 mg P.O. was administered by Pamela Dickinson RN; for antiplatelet therapy; Verbal order read back and verified. 11:59:54 EXOSEAL 6Fr (EX600) opened to sterile field. 12:00:07 Wire removed. 12:00:08 Guide catheter removed. 12:00:23 Sheath removed intact; hemostasis achieved with Exoseal to the Right Femoral artery. 12:00:33 Sheath removed intact; hemostasis achieved with Mechanical Compression to the Right Radial artery. 12:00:36 Procedure ended.(Physican Out) 12:00:45 Fluoroscopy time 02.70 minutes. 12:00:49 Fluoroscopy dose: 444 mGy 12:00:49 Flurop Dose total: 444 12:00:54 Dose Area Product 54023 mGy/cm. 12:01:00 Contrast amount:Isovue 300 86ml. 12:01:03 Maximum allowable dose exceeded? Yes. 12:01:14 Sharps counted by scrub and verified by R.N. 12:01:16 [place] band inflated with 10cc of air. 12:01:18 Insertion/operative site no bleeding no hematoma. 12:01:23 Post right femoral artery:stable 12:01:25 Post Procedure Pulses reassessed and unchanged 12:01:30 Post-procedure physical assessment completed. ASA score P 3 - A patient with severe systemic disease as per Odell Gregorio MD. 12:01:33 Post procedure rhythm: sinus rhythm 12:01:35 Estimated blood loss: 10 ml 12:01:37 Post procedure instruction explained to patient.Patient verbalizes understanding. 12:02:06 Procedure type changed to Cath procedure, Diagnostic procedure, LHC, [facility] w/Coronaries, Sedation Charges, Moderate Sedation up to 30 minutes, PCI procedure, Coronary Stent, Coronary Stent Initial, Hemochron ACT Test 12:02:09 Procedure and supply charges have been captured, reviewed, submitted and are correct. 12:02:45 Procedure Complication : No complications 12:03:02 ACT drawn and resulted at 298 seconds. (normal therapeutic range 180-240 seconds). 12:03:18 Vital chart was stopped 12:03:37 [facility] Findings: MVD- PCI performed (see procedure note) 12:03:47 Operative report dictated upon procedure completion. 12:03:48 See physician's report for complete and final results. 12:03:54 Report given to [facility]. 12:04:20 Patient transfered to Med II with Bed. 12:04:23 Procedure ended. 12:04:23 Full Disclosure recording stopped 12:04:30 End room use (Document Last) 12:04:38 ACC-PCI Only Patient was given prescriptions, or instructed by Odell Gregorio MD to start/continue the following medications upon discharge: Plavix Intervention Summary Intervention Notes Time ActionType Lesion and Equipment Used Action# Pressure Duration Attributes 11:57:14 Place stent Mid RCA MIRIAN RX 3.0 x 1 12 00:31 15 stent ([id number]) Device Usage Item Name Manufacture Quantity Catalog Hospital Part [facility] Lot# / Number Charge Number Stock Stock Serial# Code ACIST Syringe Acist 1 80322 225964 850004 155851 20 (75924) Medical Systems Inc Medline Cath Medline 1 [id number] 452724 52669 688921 5 Pack ([id number]) Bag Decanter Microtek 1 2001S 804228 45200 682202 5 (2001S) Medical Inc. ACIST Hand Acist 1 55745 853147 524919 182507 5 Control Medical (97384) Systems Inc ACIST Manifold Acist 1 22345 253877 108263 143527 5 (15742) Medical Systems Inc Tegaderm 4 x 4 3M 1 1626W 250253 557007 876777 5 (1626W) MBrace Wrist Advanced 1 140-0250-00 144153 53195 451514 5 Support Vascular ([id number]) Dynamics EMERALD Guide Cardinal 1 502-455 867932 776403 150162 5 Wire (502-455) Health SHEATH 6FR Cardinal 1 0231367 006854 7013190 823744 5 RAIN (1976259) Health SHEATH 5FR Terumo 1 TKK108 987482 263063 914671 5 Damascus (NFR789) DIAGNOSTIC Cardinal 1 WE7556 621858 30506 604246 30 Multipack 5Fr Health catheter set (GQ5671) DIAGNOSTIC JL Cardinal 1 341445Z 431621 424289 694897 10 4.0 5Fr Health catheter (111371L) DIAGNOSTIC Cardinal 1 922567K 061790 628926 437259 9 3DRC 5Fr Health catheter (005934A) DIAGNOSTIC Cardinal 1 565271D 582452 747115 279089 5 Pigtail 5Fr Health catheter (835610Q) GUIDE 6FR AR Medtronic 1 EP2PP26 318769 72830 053941 1 1.0 catheter (WH4ZP64) INFLATOR Merit Merit 1 AS0572 594006 883780 795505 15 BasixCompak Medical (SE3379) SHEATH 6FR Terumo 1 VVW762 141459 411138 797741 40 [place] (BJY311) WHISPER 300cm [place] 1 [id number] 397316 060500 477007 5 guide wire Vascular (0151658IO) MIRIAN RX 3.0 x Medtronic 1 [id number] 265890 3352618 537911 5 [id number] 15 stent ([id number]) ZEPHYR REGULAR Cardinal 1 902790 921757 8761472 719019 5 TR BAND goAct (074646) EXOSEAL 6Fr Cardinal 1 EX600 792710 272498 917268 10 (EX600) Health Signature Audit [place] Stage Time Signature Unsigned Intra-Procedure 06/22/2020 Mesha Payne 12:05:15 PM RT(R) Intra-Procedure 06/22/2020 Pamela Dickinson 12:05:53 PM RN Intra-Procedure 06/22/2020 Odell Castellano 12:10:48 PM Hugo FUENTES Signatures Performing Physician : Signature : Odell Gregorio MD Date : Time : Monitor : Mesha Payne Signature : RT Date : Time : Nurse : Pamela Dickinson RN Signature : Date : Time : [facility] [address] [place] [address]
--- NOTE | 2020-06-21 12:52 | NUR ---
LAB IS AT BEDSIDE
[2020-06-21 13:05] LABS: BASOPHILS 0.6 % (0-2); EOSINOPHILS 1.7 % (0-7); HEMOGLOBIN 14.9 g/dL (12-16); IMMATURE GRANULOCYTES 0.7 % (0-5); LYMPHOCYTES 25.8 % (15-50); MCHC 32.4 g/dL (31.0-37.0); MCV 92.7 fL (80.0-100.0); MEAN PLATELET VOLUME 9.9 fL (7.4-10.4); NEUTROPHILS 61.2 % (40-80); PLATELET COUNT 223 10x3/uL (130-400); RBC 4.96 10x6/uL (4.00-5.40); RDW 13.8 % (11.5-14.5); WBC 12.2 10x3/uL (4.8-10.8)
[2020-06-21 13:16] LABS: ANION GAP 11.8 mmol/L (8-16); CARBON DIOXIDE 27.9 mmol/L (21.0-32.0); CREATININE - SERUM 0.8 mg/dL (0.6-1.3); POTASSIUM - SERUM 3.7 mmol/L (3.5-5.1)
[2020-06-21 13:20] LABS: INR 1.06 (0.85-1.17); PROTIME 13.7 SECONDS (11.6-15.0)
[2020-06-21 13:21] LABS: APTT 30.1 SECONDS (22.8-39.4)
[2020-06-21 13:37] LABS: ALBUMIN 3.7 g/dL (3.4-5.0); BILIRUBIN - TOTAL 0.78 mg/dL (0.2-1.3); PROTEIN - SERUM 7.1 g/dL (6.4-8.2)
[2020-06-21 13:45] LABS: TROPONIN-I 0.171 ng/mL (0.000-0.060)
[2020-06-21 14:55] VITALS: BP 146/68
--- NOTE | 2020-06-21 15:53 | NUR ---
TRANSFER FROM ER BY W/C. CALL LIGHT IN REACH. WILL CONT. PLAN OF CARE.
[2020-06-21 16:05] VITALS: BP 146/80; BMI 25.0
[2020-06-21 16:49] VITALS: BP 177/66
[2020-06-21 16:58] VITALS: Ht 160 cm; Wt 65.6 kg
[2020-06-21 17:44] LABS: CHOL - HDL RATIO 4.3 ratio (2.3-4.1); LDL-HDL RATIO 2.9 ratio (1.5-3.5)
[2020-06-21 19:18] LABS: CKMB 1.4 U/L (0.0-3.6); CREATINE KINASE 27 UL (21-215)
[2020-06-21 19:23] LABS: TROPONIN-I 0.094 ng/mL (0.000-0.060)
--- NOTE | 2020-06-21 19:25 | NUR ---
PATIENT IS RESTING COMFORTABLY IN BED. SHE IS ALERT AND OREITATED. HER IS IN THE ROOM WITH HER. I EDUCATED HER ABOUT THE HEART CATH AT 1030 IN AM. SHE ASKED ME ABOUT GETTING SOMETHING TO HELP HER SLEEP. I ASSURED HER THE DR. ANGEL JON. WE WILL CONTINUE TO MONITOR HER HEART RATE AND RHYTHM.
[2020-06-21 20:00] VITALS: BP 173/48
[2020-06-22] VITALS (11 sets, daily range): BP systolic 114–203; BP diastolic 41–79
[2020-06-22 01:45] LABS: CKMB 1.6 U/L (0.0-3.6); CREATINE KINASE 41 UL (21-215)
[2020-06-22 01:49] LABS: TROPONIN-I 0.072 ng/mL (0.000-0.060)
--- NOTE | 2020-06-22 04:35 | NUR ---
PATIENT WAS SLEEPING IN BED. HER MORNING BLOOD PRESSURE WAS VERY HIGH. I WENT AHEAD AND GAVE LOPRESSOR, HTCZ, AND VALSARTAN EARLY. WE WILL CONTINUE TO MONITOR HER BLOOD PRESSURE AND TROPONINS.
--- NOTE | 2020-06-22 08:08 | NUR ---
PT SL. IVF ORDERED. ASKED CRISTÓBAL REYES AND SHE STATES SHE WILL LOOK AT CHART AND LET ME KNOW IF PT NEEDS TO HAVE IVF RUNNING OR NOT. SHE STATES TO LEAVE HER SL FOR NOW. I VERBALIZED UNDERSTANDING.
[2020-06-22 08:09] LABS: ALBUMIN 3.2 g/dL (3.4-5.0); ALKALINE PHOSPHATASE 48 U/L (30-120); ALT (SGPT) 16 U/L (10-68); BILIRUBIN - TOTAL 0.61 mg/dL (0.2-1.3); CALC OSMOLALITY 288 mosm/kg (275-300); CALCIUM 8.6 mg/dL (8.5-10.1); CARBON DIOXIDE 24.8 mmol/L (21.0-32.0); CHLORIDE - SERUM 105 mmol/L (98-107); CKMB 1.5 U/L (0.0-3.6); CREATINE KINASE 38 UL (21-215); CREATININE - SERUM 0.6 mg/dL (0.6-1.3); GLUCOSE 155 mg/dL (74-106); POTASSIUM - SERUM 3.9 mmol/L (3.5-5.1); PROTEIN - SERUM 6.2 g/dL (6.4-8.2); SODIUM 143 mmol/L (136-145); TROPONIN-I 0.037 ng/mL (0.000-0.060); eGFR NON AFRICAN AMERICAN > 90 mL/min (90-120)
[2020-06-22 08:11] LABS: UREA NITROGEN 14 mg/dL (7-18)
--- NOTE | 2020-06-22 08:57 | NUR ---
PT'S BP 203/79 AND HAS BEEN RUNNING HIGH. CALLED CRISTÓBAL REYES AND SHE STATES SHE WILL PUT IN A PRN BP MED. I VERBALIZED UNDERSTANDING.
[2020-06-22 09:00] LABS: BASOPHILS 0.2 % (0-2); EOSINOPHILS 0 % (0-7); HEMATOCRIT 44.6 % (36.0-48.0); HEMOGLOBIN 14.6 g/dL (12-16); IMMATURE GRANULOCYTES 0.5 % (0-5); MCHC 32.7 g/dL (31.0-37.0); MCV 91.8 fL (80.0-100.0); MEAN PLATELET VOLUME 10.7 fL (7.4-10.4); MONOCYTES 1.1 % (2-11); NEUTROPHILS 87.2 % (40-80); PLATELET COUNT 226 10x3/uL (130-400); RBC 4.86 10x6/uL (4.00-5.40); RDW 13.6 % (11.5-14.5); WBC 9.4 10x3/uL (4.8-10.8)
--- NOTE | 2020-06-22 12:15 | NUR ---
PT RETURNED FROM SEWER PIPE CLEANER. LAYING FLAT. ALERT AND ORIENTED. VS STABLE. PT HAS CHILLS. AND RIGHT GROIN HAS FEM STOP. RIGHT GROIN BRUISED AND HAS A HARD HEMATOMA. RIGHT LEG HAS SOME DISCOLORATION. RIGHT LEG WARM AND HAS GOOD PULSES. RIGHT WRIST Z BAND AND IMMOBILIZER ON NO BLEEDING NOTED. WILL CONTINUE TO MONITOR. BED LOW. CL IN REACH.
--- NOTE | 2020-06-22 12:45 | NUR ---
PT RETURNED FROM BINDING CEMENTER FRENCH CORD. LAYING FLAT. ALERT AND ORIENTED. VS STABLE. PT HAS CHILLS. AND RIGHT GROIN HAS FEM STOP. RIGHT GROIN BRUISED AND HAS A HARD HEMATOMA. RIGHT LEG HAS SOME DISCOLORATION. RIGHT LEG WARM AND HAS GOOD PULSES. RIGHT WRIST Z BAND AND IMMOBILIZER ON NO BLEEDING NOTED. WILL CONTINUE TO MONITOR. BED LOW. CL IN REACH.
--- NOTE | 2020-06-22 13:11 | NUR ---
PT HAVING CHILS AND STATED SHE WAS GOING TO THROW UP. PT TURNED HEAD TO THE RIGHT AND VOMITED X1. ZOFRAN GIVEN IV AND BLUE BAG GIVEN TO PT. HOLLY RN AT BEDSIDE AND STATED TO DR. LLANES ABOUT PT.
--- NOTE | 2020-06-22 13:17 | NUR ---
RIGHT LEG DISCOLORED AND RIGHT GROIN HAS A FEM STOP ON. RIGHT GROIN TO UPPER THIGH HAS A HEMATOMA AND IS MARKED. HAD NURSE FROM TECHNICAL EDUCATION TEACHER COME LOOK AT PT'S LEG AND SHE STATES THAT IT LOOKS OK AND THAT SHE WILL COME LET THE AIR OUT OF FEM STOP AAFTER THIS NEXT CASE. I VEBRALIZED UNDERSTANDING. DR. LLANES STATES SHE IS GOING TO KEEP PT OVERNIGHT AND POSSIBLE DC TOMORROW.
--- NOTE | 2020-06-22 14:25 | NUR ---
CAMERA SYSTEMS ENGINEER CHECKED FEM STOP AND STATED TO LEAVE IT ON ANOTHER HOUR. PT C/O PAIN STATED PT WAS GIVEN MORPHINE THEY TSTAE TO GIVE PT A ONE TIME NORCO 5. I VERBALIZED UNDERSTANDING.
--- NOTE | 2020-06-22 15:33 | NUR ---
RIGHT GROIN BRUISED BUT SOFT. SMALL AMOUNT OF RED BLOOD ON DRESSING. RELEASED AIR FROM RIGHT GROIN WILL KEEP FEM STOP ON. NO BLEEDING NOTED TO RIGHT GROIN. RIGHT WRIST Z BAND REMOVED 3CC OF AIR. NO BLEEDING NOTED. WILL CONTINUE TO MONITOR.
--- NOTE | 2020-06-22 15:46 | NUR ---
I have reviewed this patient and I concur with the Shift Assessment completed by the Licensed Practical Nurse today this shift.
--- NOTE | 2020-06-22 16:22 | NUR ---
FEM STOP REMOVED FROM RIGHT GROIN. 4CC OF AIR REMOVED FROM Z BAND. NO BLEEDING NOTED FROM EITHER SITE. WILL CONTINUE TO MONITOR.
--- NOTE | 2020-06-22 16:45 | NUR ---
REST OF AIR REMOVED FROM Z BAND.. BANDAID PLACED ON RIGHT WRIST AND IMMOBILIZER PLACED BACK ON ARM.
--- NOTE | 2020-06-22 17:25 | NUR ---
PT WAS A STAND BY ASSIST TO THE BATHROOM AND BACK TO BED. RIGHT GROIN SOFT AND NO BLEEDING NOTED. WILL CONTINUE TO MONITOR.
[2020-06-22 21:14] LABS: BILIRUBIN NEGATIVE (NEGATIVE); GLUCOSE NEGATIVE (NEGATIVE); KETONE NEGATIVE (NEGATIVE); NITRITE NEGATIVE (NEGATIVE); SPECIFIC GRAVITY 1.025 (1.005-1.020); UROBILINOGEN NORMAL (NORMAL)
[2020-06-23] VITALS: BP 117/45
[2020-06-23 04:00] VITALS: BP 136/50
[2020-06-23 08:09] LABS: BASOPHILS 0.1 % (0-2); EOSINOPHILS 0.1 % (0-7); HEMATOCRIT 36.3 % (36.0-48.0); HEMOGLOBIN 11.7 g/dL (12-16); IMMATURE GRANULOCYTES 0.4 % (0-5); LYMPHOCYTES 6.5 % (15-50); MCH 29.5 pg (26.0-34.0); MCHC 32.2 g/dL (31.0-37.0); MCV 91.4 fL (80.0-100.0); MEAN PLATELET VOLUME 10.5 fL (7.4-10.4); NEUTROPHILS 85.9 % (40-80); PLATELET COUNT 198 10x3/uL (130-400); RBC 3.97 10x6/uL (4.00-5.40); RDW 13.9 % (11.5-14.5)
[2020-06-23 08:20] LABS: WBC 19.7 10x3/uL (4.8-10.8)
[2020-06-23 08:26] LABS: CARBON DIOXIDE 25.6 mmol/L (21.0-32.0); POTASSIUM - SERUM 3.6 mmol/L (3.5-5.1)
[2020-06-23 08:27] LABS: CREATININE - SERUM 1.2 mg/dL (0.6-1.3)
[2020-06-23 09:00] VITALS: BP 158/52
[2020-06-23] MEDS ORDERED: PLAVIX75 MG PO (12:14)
[2020-06-23] MEDS ORDERED: PRAVACHOL20 MG PO (12:25)
--- NOTE | 2020-06-23 12:40 | NUR ---
PRAVASTATIN 20MG CALLED TO [address]. SPOKE WITH MATTEO/PHARMACIST
[2020-06-23] MEDS ORDERED: NICODERM CQ1 EAC3 TOPICAL (13:17)
--- NOTE | 2020-06-23 14:53 | OP ---
PATIENT NAME: YASMIN MONTAÑO MEDICAL RECORD: [id number] :41 LOCATION:D.M2 D.2116 ADMISSION DATE:06/21/20 SURGEON: ERA DO MD DATE OF OPERATION: 06/22/2020 PROCEDURE: Left heart catheterization, selective coronary angiography, plus PTCA stent to right coronary artery, right femoral artery approach. Unable to do radial secondary to radial loop. FINDINGS: Left ventriculography in 30-degree ESCOBEDO view: Normal wall motion and normal systolic function. CORONARY ANATOMY: LEFT MAIN: Left main is free of disease. LAD: LAD is free of disease in the diagonal system. CIRCUMFLEX: Free of disease in the marginal system. 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 PLAN: Intervention momentarily. DESCRIPTION OF PROCEDURE: A 5-Eritrean sheath was exchanged for 6-Eritrean sheath. AR1 guiding catheter provided excellent guide catheter support followed by 300 cm Whisper wire. Stent deployed was a 3.0 x 15 mm [place] drug-eluting stent up to 14 atmospheres. Final angiography shows excellent resolution of 80% stenosis, no significant residual. VIVIENNE flow was 3 throughout the procedure. Heparin and Integrilin were used during the case. Sheath was closed with ExoSeal device. TRANSINT:[id number] Voice Confirmation ID: [id number] DOCUMENT ID: [id number] ERA DO MD at 1453 CC: [id number] DICTATION DATE: 06/22/20 1203 FINISH MENDER: 06/22/20 1847 DIS IN 06/23/20 [facility] [address] [place] [address]
--- NOTE | 2020-06-23 14:53 | EC ---
PATIENT:YASMIN MONTAÑO DATE OF SERVICE: 06/21/20 SEX: F MEDICAL RECORD: [id number] DATE OF : 42 LOCATION:D.M2 D.211 AGE OF PATIENT: 79 ADMISSION DATE: 06/21/20 REFERRING PHYSICIAN: INTERPRETING PHYSICIAN: ERA DO MD ECHOCARDIOGRAM REPORT ECHO CHARGES 4 ECHO COMPLETE Date: 06/22/20 CLINICAL DIAGNOSIS: LVH ECHOCARDIOGRAPHIC MEASUREMENTS (adult normal given) AC root (d.<3.7cm) 2.3 cm LV Septum d (<1.2 cm> 1.0 cm Valve Excursion 1.4 cm LV Septum (systole) 1.5 cm Left Atria (s.<4.0cm> 3.4 cm LVPW d(<1.2cm) 1.0 cm RV (d.<2.3cm) 1.9 cm LVPW (sytole) 1.1 cm LV diastole(<5.6CM) 4.6 cm MV E-F(>70mm/sec) cm LV systole 3.6 cm LVOT Diameter 1.6 cm MV exc.(>10mm) cm Est.ejection fraction (50-75%) % DOPPLER: LVIT cm/sec A 60 cm/sec E 51 cm/sec LA cm/sec RVSP 33.0 mmHg LVOT 69 cm/sec AOP1/2T m/s Asc. Ao 92 cm/sec RVOT 80 cm/sec RA cm/sec PA 91 cm/sec AV Gradient Peak 3.4 mmHg AV Mean 2.0 mmHg AV Area 1.8 cm MV Gradient Peak 2.1 mmHg MV Mean 0.9 mmHg MV Area cm COMMENTS: Stitcher Feeder: Jer PITTCLEMENCIA KRISTI Territory Sales Manager: 3 Dr. Alexander TAPE# PACS Pericardial Effusion N DATE OF SERVICE: Adequate 2D, color-flow imaging, spectral Doppler, and M-Mode Borderline LVH. LV internal dimension is normal. Wall motion is normal. EF is greater than or equal to 55%. Aortic valve is tricuspid. No evidence of stenosis by Doppler interrogation. The left atrium is normal. Mitral valve shows no prolapse. Mild MR. Right-sided chambers are grossly normal. Trace TR. 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 ECHOCARDIOGRAM REPORT [id number] YASMIN MONTAÑO TRANSINT:[id number] Voice Confirmation ID: [id number] DOCUMENT ID: [id number] ERA DO MD at 1453 CC: [id number] DICTATION DATE: 06/23/20 08 AUTO BATTERY BUILDER: 06/23/20 0902 DIS IN 06/23/20 [place] [id number] [place] [id number]
--- NOTE | 2020-06-24 14:48 | MORECARE ---
CASE MANAGEMENT DISCHARGE SUMMARY PATIENT: YASMIN MONTAÑO UNIT: [id number] ADM DATE: 06/21/20 AGE: 79 : 42 SEX: F ROOM/BED: D.6846 AUTHOR: ALEXX GONZALEZ PHYSICIAN: REFERRING PHYSICIAN: RAFITA LEWIS MD DATE OF SERVICE: 06/24/20 Discharge Plan Patient Name: YASMIN MONTA[facility] [facility] 1940 Planned Disposition: Home Anticipated Discharge Date: 06/23/20 Discharge Date: 06/23/2020 Expected LOS: 2 Initial Reviewer: [email or web address] Initial Review Date: 06/21/2020 Generated: 06/24/20 3:47 pm Patient Name: YASMIN MONTAÑO Page [id number] at 1448 All edits/amendments must be made on the electronic document DICTATION DATE: 06/24/20 1447 PHOTOGRAPHY TEACHER: JORGE 06/24/20 1447 RPT#: [id number] DC DATE:06/23/20 STATUS: DIS IN [facility] [address] [place] [address] END OF REPORT
== END 2020-06-23 13:23 | disposition home or self-care (01) | DRG 247 ==
LOC: D.ER 11:48 → D.M2 14:32
PROVIDERS: Family Medicine; Internal Medicine Interventional Cardiology; ADMIT Emergency Medicine; ATTEND Emergency Medicine
PROC: B2111ZZ Fluoroscopy of Multiple Coronary Arteries using Low Osmolar Contrast (ICD-10-PCS; 2020-06-22)
PROC: B2151ZZ Fluoroscopy of Left Heart using Low Osmolar Contrast (ICD-10-PCS; 2020-06-22)
PROC: 027034Z Dilation of Coronary Artery, One Artery with Drug-eluting Intraluminal Device, Percutaneous Approach (ICD-10-PCS; principal; 2020-06-22 11:00)
PROC: 4A023N7 Measurement of Cardiac Sampling and Pressure, Left Heart, Percutaneous Approach (ICD-10-PCS; 2020-06-22 11:00)
DX: I21.4 Non-ST elevation (NSTEMI) myocardial infarction (principal); I08.3 Combined rheumatic disorders of mitral, aortic and tricuspid valves; I10 Essential (primary) hypertension; I25.110 Atherosclerotic heart disease of native coronary artery with unstable angina pectoris; R00.1 Bradycardia, unspecified; L27.0 Generalized skin eruption due to drugs and medicaments taken internally; T50.8X5A Adverse effect of diagnostic agents, initial encounter; Z72.0 Tobacco use